=== PATIENT | male | born 1980 | race Caucasian/White ===

== ENCOUNTER 2022-04-08 18:17 | Emergency (ER) | payer SELFPAY ==
[2022-04-08] MEDS ORDERED: DIAZEPAM 5 MG TABLET ONE (19:39)
[2022-04-08] MEDS ORDERED: HYDROCODONE/APAP 5/325 MG TAB ONE (19:40)
--- NOTE | 2022-04-08 20:35 | RAD REPORT ---
EXAM DESCRIPTION: RAD - Lumbar Spine 3 Views - 04/08/2022 8:16 pm CLINICAL HISTORY: LOWER BACK PAIN COMPARISON: No comparisons FINDINGS: No acute fracture. Grade 1 anterolisthesis of L3 on L4. Trace retrolisthesis of L4 on L5. Grade 1 anterolisthesis of L5 on S1. Dextroscoliotic curvature noted. Multilevel degenerate disc dise ase. Mild diffuse disc height loss is noted. Endplate spurring is present. IMPRESSION: No acute osseous abnormality involving the lumbar spine.
--- NOTE | 2022-04-08 20:52 | EDPHYS ---
Physician Documentation [facility] Name: Deborah Butt Age: 41 yrs Sex: Male : 1980 Arrival Date: 04/08/2022 Time: 18:32 Bed 8 Private MD: ED Physician Dominic Zheng HPI: 04/08 20:52 This 41 yrs old Male presents to ER via Ambulatory with complaints of Fall Injury, Back ms3 Pain. 20:52 41-year-old male with no past medical history presents status post slip and fall from ms3 his car when getting out 2 hours prior to arrival. Patient states he is having 10/10 lower back pain. Patient denies nausea, vomiting, incontinence, numbness. Patient denies alleviating factors. Patient states pain is worse with movement.. Historical: - Allergies: 21:01 No Known Allergies; kl - PMHx: 21: None; kl - Immunization history:: Adult Immunizations up to date. - Social history:: Smoking status: Reported history of juuling and/or vaping. ROS: 20:52 Constitutional: Negative for fever, and chills. Eyes: Negative for injury, pain, ms3 redness, and discharge, Neck: Negative for injury, pain, and swelling, Cardiovascular: Negative for chest pain, and palpitations. Respiratory: Negative for shortness of breath, cough, wheezing, and pleuritic chest pain, Abdomen/GI: Negative for abdominal pain, nausea, vomiting, diarrhea, and constipation, Neuro: Negative for headache, weakness, numbness, tingling. 20:52 Back: Positive for pain with movement. 20:52 All other systems are negative. Exam: 20:52 Constitutional: This is a well developed, well nourished patient who is awake, alert, ms3 and in no acute distress. Head/Face: Normocephalic, atraumatic. Neck: Trachea midline, no cervical lymphadenopathy. Supple, full range of motion without nuchal rigidity, or vertebral point tenderness. No Meningismus. Chest/axilla: Normal chest wall appearance and motion. Nontender with no deformity. Cardiovascular: Regular rate and rhythm with a normal S1 and S2. No gallops, murmurs, or rubs. Normal PMI, no JVD. No pulse deficits. Respiratory: Lungs have equal breath sounds bilaterally, clear to auscultation and percussion. No rales, rhonchi or wheezes noted. No increased work of breathing, no retractions or nasal flaring. Abdomen/GI: Soft, non-tender, with normal bowel sounds. No distension or tympany. No guarding or rebound. No evidence of tenderness throughout. 20:52 Back: pain, ROM is painful, with rotation to the right, with rotation to the left, normal spinal alignment noted, muscle spasm, is appreciated in the left low back and right low back. Vital Signs: 19:22 BP 158 / 95; Pulse 74; Resp 18; Temp 97.3; Pulse Ox 96% on R/A; Weight 166.92 kg; kl Height 6 ft. 1 in. (185.42 cm); Pain 8/10; 19:53 Weight 190.51 kg; kl 19:53 BP 155 / 77; Pulse 76; Resp 20; Pulse Ox 97% on R/A; kl 21:03 BP 145 / 82; Pulse 72; Resp 18; Pulse Ox 100% on R/A; Pain 3/10; kl 19:53 Body Mass Index 55.41 (190.51 kg, 185.42 cm) [place] Coma Score: 19:22 Eye Response: spontaneous(4). Verbal Response: oriented(5). Motor Response: obeys kl commands(6). Total: 15. Trauma Score (Adult): 19:22 Eye Response: spontaneous(1); Verbal Response: oriented(1); Motor Response: obeys kl commands(2); Systolic BP: > 89 mm Hg(4); Respiratory Rate: 10 to 29 per min(4); [place] Score: 15; Trauma Score: 12 MDM: 19:16 Patient medically screened. ms3 20:52 Differential diagnosis: contusion, fracture, sprain, strain. Data reviewed: vital ms3 signs, nurses notes, radiologic studies, and as a result, I will discharge patient. Counseling: I had a detailed discussion with the patient and/or guardian regarding: the historical points, exam findings, and any diagnostic results supporting the discharge/admit diagnosis, radiology results, the need for outpatient follow up, to return to the emergency department if symptoms worsen or persist or if there are any questions or concerns that arise at home. ED course: On reevaluation patient is improved, alert and oriented x4, in no apparent distress, nontoxic-appearing, speaking full sentences, ambulatory in emergency department. . 04/08 19:40 Order name: Lumbar Spine (3 Views) XRAY; Complete Time: 20:36 ms3 Administered Medications: 19:35 Drug: Valium (diazepam) 5 mg Route: PO; kl 21:03 Follow up: Response: Marked relief of symptoms kl 19:35 Drug: HYDROcodone-acetaminophen 5 mg-325 mg 1 tabs Route: PO; kl 21:02 Follow up: Response: Marked relief of symptoms kl Disposition Summary: 04/08/22 20:52 Discharge Ordered Location: Home ms3 Problem: new ms3 Symptoms: are unchanged ms3 Condition: Stable ms3 Diagnosis - Low back pain ms3 - Fall from car ms3 Followup: ms3 - With: Av Mariscal DO - When: 2 - 3 days - Reason: Recheck today's complaints Discharge Instructions: - Discharge Summary Sheet ms3 - Acute Back Pain, Adult ms3 Forms: - Medication Reconciliation Form ms3 - Thank You Letter ms3 - Antibiotic Education ms3 - Prescription Opioid Use ms3 Prescriptions: - Ibuprofen 600 mg Oral Tablet - take 1 tablet by ORAL route every 6 hours As needed take with food; 30 tablet; ms3 Refills: 0, Product Selection Permitted - Cyclobenzaprine 5 mg Oral Tablet - take 1 tablet by ORAL route 3 times per day As needed; 15 tablet; Refills: 0, ms3 Product Selection Permitted Signatures: Dispatcher [employer] Rossy Friedman RN RN kl Sims, Marcus, DO DO ms3 Corrections: (The following items were deleted from the chart) 19:43 19:20 Spine Lumbar Wo Con+CT.RAD.BRZ ordered. EDMS EDMS
--- NOTE | 2022-04-08 20:52 | ER ---
Nurse's Notes [facility] Name: Deborah Butt Age: 41 yrs Sex: Male : 1980 Arrival Date: 04/08/2022 Time: 18:32 Bed 8 Private MD: Diagnosis: Low back pain;Fall from car Presentation: 04/08 19:17 Chief complaint: Patient states: slipped and fell while exiting care 2 hours [employer] kl reports landed on buttocks c/o difficulty ambulating and sitting. Care prior to arrival: None. Mechanism of Injury: Fall. Trauma event details: Injury occurred in the [facility], Injury occurred: in a public building. Injury occurred: April 08, 2022 Injury occurred at: 17:00. 19:17 Acuity: EMA 3 kl 19:17 Method Of Arrival: Ambulatory kl Historical: - Allergies: 21:01 No Known Allergies; kl - PMHx: 21:01 None; kl - Immunization history:: Adult Immunizations up to date. - Social history:: Smoking status: Reported history of juuling and/or vaping. Screenin:53 Abuse screen: Denies threats or abuse. Tuberculosis screening: No symptoms or risk kl factors identified. Primary Survey: 19:21 NO uncontrolled hemorrhage observed. Breathing/Chest: Spontaneous respiratory effort, kl equal unlabored respirations, breath sounds clear bilaterally, regular pattern, symmetrical chest rise and fall. Circulation: No external hemorrhage present. Regular and strong central pulse, skin warm/dry/normal color. Disability Pupils are equal, round, reactive to light and accommodation. Assessment: 19:18 General: Appears distressed, uncomfortable, obese, Behavior is calm, cooperative. Pain: kl Complains of pain in lumbar area, right flank and right low back Pain currently is 8 out of 10 on a pain scale. Quality of pain is described as aching, Aggravated by increased activity. Neuro: No deficits noted. [place] Agitation-Sedation Scale (RASS): 0 - Alert and Calm Level of Consciousness is awake, alert, obeys commands, Oriented to person, place, time, situation. EENT: No deficits noted. No signs and/or symptoms were reported regarding the EENT system. Cardiovascular: No deficits noted. Respiratory: No deficits noted. Airway is patent Trachea midline Respiratory effort is even, unlabored, Respiratory pattern is regular, symmetrical. GI: No deficits noted. No signs and/or symptoms were reported involving the gastrointestinal system. : No deficits noted. No signs and/or symptoms were reported regarding the genitourinary system. Derm: No deficits noted. No signs and/or symptoms reported regarding the dermatologic system. Musculoskeletal: No deficits noted. Reports pain in coccyx, right lower back and right gluteus ben. Injury Description: Bruise sustained to right gluteus ben. Vital Signs: 19:22 BP 158 / 95; Pulse 74; Resp 18; Temp 97.3; Pulse Ox 96% on R/A; Weight 166.92 kg; kl Height 6 ft. 1 in. (185.42 cm); Pain 8/10; 19:53 Weight 190.51 kg; kl 19:53 BP 155 / 77; Pulse 76; Resp 20; Pulse Ox 97% on R/A; kl 21:03 BP 145 / 82; Pulse 72; Resp 18; Pulse Ox 100% on R/A; Pain 3/10; kl 19:53 Body Mass Index 55.41 (190.51 kg, 185.42 cm) kl [place] Coma Score: 19:22 Eye Response: spontaneous(4). Verbal Response: oriented(5). Motor Response: obeys kl commands(6). Total: 15. Trauma Score (Adult): 19:22 Eye Response: spontaneous(1); Verbal Response: oriented(1); Motor Response: obeys kl commands(2); Systolic BP: > 89 mm Hg(4); Respiratory Rate: 10 to 29 per min(4); [place] Score: 15; Trauma Score: 12 ED Course: 18:32 Patient arrived in ED. mr 19:04 Dominic Zheng DO is Attending Physician. ms3 19:06 Dominic Zheng DO is Attending Physician. ms3 19:08 Jason Abbott, RN is Primary Nurse. as6 19:18 Triage completed. kl 20:18 Lumbar Spine (3 Views) XRAY In Process Unspecified. EDMS 20:51 Av Mariscal DO is Referral Physician. ms3 21:02 Patient has correct armband on for positive identification. kl 21:02 No provider procedures requiring assistance completed. Patient did not have IV access kl during this emergency room visit. Administered Medications: 19:35 Drug: Valium (diazepam) 5 mg Route: PO; kl 21:03 Follow up: Response: Marked relief of symptoms kl 19:35 Drug: HYDROcodone-acetaminophen 5 mg-325 mg 1 tabs Route: PO; kl 21:02 Follow up: Response: Marked relief of symptoms Outcome: 20:52 Discharge ordered by MD. cha 21:03 Patient left the ED. Signatures: Dispatcher [employer] EDMS Rossy Velarde RN RN kl Rivera, Mary mr Dominic Zheng DO DO ms3 Jason Abbott RN RN as6
[2022-04-08 21:34] VITALS: TEMP 97.3
[2022-04-08 21:38] VITALS: BP 145/82; O2SAT 100
== END 2022-04-08 21:03 | disposition home or self-care (01) ==
LOC: ER 18:17
DX: M54.50 Low back pain, unspecified (principal); W17.89XA Other fall from one level to another, initial encounter
CPT/HCPCS: 72100; 99283

== ENCOUNTER 2024-10-26 08:23 | Emergency (ER) | payer SELFPAY ==
--- NOTE | 2024-10-26 09:24 | RAD REPORT ---
EXAMINATION: XR LEFT FOOT CLINICAL INDICATION: heel pain TECHNIQUE: Multiple projections of the left foot were obtained. COMPARISON: No prior exam. FINDINGS: No bone or joint abnormality seen. Tiny calcaneal spurs.
--- NOTE | 2024-10-26 09:46 | ER ---
Nurse's Notes [facility] Name: Deborah Butt Age: 44 yrs Sex: Male : 1980 Arrival Date: 10/26/2024 Time: 08:23 Bed 19 Private MD: Diagnosis: Calcaneal spur, left foot Presentation: 10/26 08:34 Chief complaint: Patient states: past week and half has pain in left heel when he iw walks, denies injury. Coronavirus screen: At this time, the client does not indicate any symptoms associated with coronavirus-19. Ebola Screen: No symptoms or risks identified at this time. Initial Sepsis Screen: Does the patient meet any 2 criteria? No. Patient's initial sepsis screen is negative. Does the patient have a suspected source of infection? No. Patient's initial sepsis screen is negative. Risk Assessment: Do you want to hurt yourself or someone else? Patient reports no desire to harm self or others. Onset of symptoms was October 17, 2024. 08:34 Method Of Arrival: Ambulatory iw 08:34 Acuity: EMA 4 iw Historical: - Allergies: 08:35 No Known Allergies; iw - PMHx: 08:35 Diabetes mellitus; iw - PSHx: 08:35 None; iw - Immunization history:: Adult Immunizations not up to date. - Infectious Disease History:: Denies. - Social history:: Smoking status: . Screenin:[facility] ED Fall Risk Assessment (Adult) History of falling in the last 3 months, iw including since admission No falls in past 3 months (0 pts) Confusion or Disorientation No (0 pts) Intoxicated or Sedated No (0 pts) Impaired Gait No (0 pts) Mobility Assist Device Used No (0 pt) Altered Elimination No (0 pt) Score/Fall Risk Level 0 - 2 = Low Risk Oriented to surroundings. Abuse screen: Denies threats or abuse. Nutritional screening: No deficits noted. Tuberculosis screening: No symptoms or risk factors identified. Assessment: 08:40 General: Appears in no apparent distress. Behavior is calm, cooperative. Pain: iw Complains of pain in left foot. Neuro: Level of Consciousness is awake, alert, obeys commands, Oriented to person, place, time, situation, Moves all extremities. Full function. Cardiovascular: Patient's skin is warm and dry. Respiratory: Respiratory effort is even, unlabored, Respiratory pattern is regular. Derm: Skin is intact, is healthy with good turgor. Musculoskeletal: Range of motion: intact in all extremities. Vital Signs: 08:34 BP 157 / 91; Pulse 65; Resp 16; Temp 97.1; Pulse Ox 100% on R/A; iw ED Course: 08:30 Patient arrived in ED. mr 08:31 Saira Gomez PA-C is PHCP. sb4 08:31 Nicko Uriarte MD is Attending Physician. sb4 08:35 Triage completed. iw 08:36 Arm band placed on. iw 08:41 Patient has correct armband on for positive identification. Provided Education on: POC. iw 08:41 No provider procedures requiring assistance completed. Patient did not have IV access iw during this emergency room visit. 08:51 Nyla Leavitt, RN is Primary Nurse. iw 09:12 Foot Left 3 View XRAY In Process Unspecified. EDMS Administered Medications: No medications were administered Medication: 08:41 VIS not applicable for this client. iw Outcome: 09:45 Discharge ordered by . sb4 10:27 Discharged to home ambulatory, bp 10:27 Condition: stable 10:27 Discharge instructions given to patient, Instructed on discharge instructions, follow up and referral plans. medication usage, Demonstrated understanding of instructions, follow-up care, medications, Prescriptions given X 1, 10:28 Patient left the ED. bp Signatures: Dispatcher [employer] EDMS Lizette Manuel, Reg Reg mr Nyla Leavitt, RN RUFINO iw Aries Amezquita RN RN bp Saira Gomez PA-C PA-C sb4 Corrections: (The following items were deleted from the chart) 08:59 08:34 Chief complaint: Patient states: past week and half has pain in right heel when iw he walks, denies injury iw 08:59 08:40 Pain: Complains of pain in right foot iw iw
--- NOTE | 2024-10-26 09:46 | EDPHYS ---
Physician Documentation [facility] Name: Deborah White Age: 44 yrs Sex: Male : 1980 Arrival Date: 10/26/2024 Time: 08:23 Bed 19 Private MD: ED Physician Nicko Uriarte HPI: 10/26 08:52 This 44 yrs old Male presents to ER via Ambulatory with complaints of Foot Pain. sb4 08:53 Left heel pain time 1-1/2 weeks. Denies any injury. States he only has the pain when he sb4 tries to ambulate and states that this sharp shooting pain. Has not taken any medication for the pain. Is a type II diabetic, states his blood sugars are controlled. Historical: - Allergies: 08:35 No Known Allergies; iw - PMHx: 08:35 Diabetes mellitus; iw - PSHx: 08:35 None; iw - Immunization history:: Adult Immunizations not up to date. - Infectious Disease History:: Denies. - Social history:: Smoking status: . ROS: 08:53 Constitutional: Negative for fever, chills, and weight loss, sb4 08:53 MS/extremity: Positive for pain, of the heel of left foot, 08:53 All other systems are negative, Exam: 08:53 Head/Face: Normocephalic, atraumatic. Eyes: Extra-ocular motions intact. Periorbital sb4 areas with no swelling, redness, or edema. ENT: Mucous membranes moist. Respiratory: No increased work of breathing, no retractions or nasal flaring. Skin: Warm, dry with normal turgor. Normal color with no rashes, no lesions, and no evidence of cellulitis. MS/ Extremity: Pulses equal, no cyanosis. Neurovascular intact. Full, normal range of motion. 08:53 Constitutional: The patient appears in no acute distress, alert, awake, obese, 08:53 Musculoskeletal/extremity: Weight bearing: able to fully bear weight, With mild difficulty, Vital Signs: 08:34 BP 157 / 91; Pulse 65; Resp 16; Temp 97.1; Pulse Ox 100% on R/A; iw MDM: 08:31 Medical Screening Exam initiated sb4 09:08 Independent interpretation of the following test(s) in the Emergency Department X-Ray: sb4 My interpretation is my interpretation of the left foot xray images is no acute fracture of dislocation. 09:45 Data reviewed: vital signs, nurses notes, lab test result(s), radiologic studies, and sb4 as a result, I will discharge patient. Care significantly affected by the following chronic conditions: Diabetes, Obesity. Counseling: I had a detailed discussion with the patient and/or guardian regarding the historical points, exam findings, and any diagnostic results supporting the discharge/admit diagnosis, radiology results, the need for outpatient follow up, for definitive care, to return to the emergency department if symptoms worsen or persist or if there are any questions or concerns that arise at home. 10/26 09:29 Order name: Glucose, Ancillary Testing; Complete Time: 09:29 EDMS 10/26 08:47 Order name: Foot Left 3 View XRAY; Complete Time: 09:26 sb4 10/26 08:53 Order name: Accucheck sb4 10/26 09:45 Order name: Orthopedic shoe; Complete Time: 10:27 sb4 Administered Medications: No medications were administered Disposition: 11:01 Co-signature as Attending Physician, Nicko Uriarte MD I reviewed the patient's care rt provided by the Advanced Practice Provider and agree with the diagnosis and treatment plan. Disposition Summary: 10/26/24 09:45 Discharge Ordered Notes: Location: Home sb4 Problem: an ongoing problem sb4 Symptoms: are unchanged sb4 Condition: Stable sb4 Diagnosis - Calcaneal spur, left foot sb4 Followup: sb4 - With: Private Physician - When: 1 week - Reason: Recheck today's complaints, Re-evaluation by your physician Discharge Instructions: - Discharge Summary Sheet sb4 - Heel Spur sb4 Forms: - Patient Portal Instructions sb4 - Leadership Thank You Letter sb4 Prescriptions: - Anaprox DS 550 mg Oral Tablet - take 1 tablet ORAL route every 12 hours As needed; 20 tablet; Refills: 0, sb4 Product Selection Permitted Signatures: Dispatcher [employer] Nyla Perdue, Saira Carpenter RN, PA-C PA-C sb4 Nicko Uriarte MD MD rt
[2024-10-26 10:34] VITALS: BP 157/91; TEMP 97.1; O2SAT 100
== END 2024-10-26 10:28 | disposition home or self-care (01) ==
LOC: ER 08:23
DX: M77.32 Calcaneal spur, left foot (principal)
CPT/HCPCS: 82947; 99283